=== PATIENT | male | born 1965 | race Caucasian/White ===

== ENCOUNTER 2016-12-26 22:22 | Emergency (ER) | payer OTHER, BC ==
[~2016-12-26] VITALS: Ht 182.9 cm; Wt 94.0 kg
[~2016-12-26 22:22] MED LIST: ATOR-26 PO; VNTHFA/IN INH
[2016-12-26 22:28] VITALS: TEMP 36.6; Ht 182.9 cm; Wt 94.0 kg
[2016-12-26] MEDS ORDERED: ROSU40TA18 PO (22:32)
[2016-12-26] MEDS ORDERED: LPT10 (22:32)
[2016-12-26] MEDS ORDERED: ADD VANTAGE IV ONE (22:45)
[2016-12-26] MEDS ORDERED: CLINDAMYCIN IV ONE (22:45)
[2016-12-26] MEDS ORDERED: DEXTROSE 5% IV ONE (22:45)
[2016-12-26] MEDS ORDERED: COEN1CAP28 PO (22:56)
[2016-12-26] MEDS ORDERED: MIRT15TA3 PO (22:56)
[2016-12-26 23:57] LABS: HEMATOCRIT 38.7 % (42-52); MEAN CELL VOLUME 87.4 fL (80-100); MEAN CORPUSCULAR HEMOGLOBIN 31.2 pg (25-34); MEAN CORPUSCULAR HGB CONC 35.7 g/dl (32-36); MEAN PLATELET VOLUME 9.8 fL (7.4-10.4); PLATELET COUNT 253 K/uL (130-400); RED BLOOD COUNT 4.43 M/uL (4.7-6.1); WHITE BLOOD COUNT 7.22 K/uL (4.8-10.8)
[2016-12-27] MEDS ORDERED: CLINDAMYCIN 150MG HOME PACK PO ONE (00:15)
[2016-12-27 00:16] LABS: BUN/CREATININE RATIO 18.2 (10-20); CALCIUM 9.3 mg/dl (8.5-10.1); CREATININE 0.8 mg/dl (0.60-1.40); POTASSIUM 3.9 mmol/L (3.5-5.1)
[2016-12-27] MEDS ORDERED: IBUPROFEN 600 MG TAB PO STA (00:26)
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
[2016-12-27] MEDS ORDERED: CLIN300C2 PO (00:30)
[2016-12-27 00:40] VITALS: BP 139/93; PULSE 73; O2SAT 99
[2016-12-27 00:43] LABS: COMPLETE YES; EOSINOPHIL % 7.9 %; LYMPHOCYTE % 33.3 %; VARIANT LYM ABS # 1.21 K/uL; VARIANT LYMPHOCYTE % 16.7 %
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
--- NOTE | 2016-12-31 15:29 | Pharmacy Progress Note ---
ED Pharmacist Culture FollowUp Date of Service: Dec 31, 2016. Patient was sent home with a prescription for clindamycin, which should cover the Staph aureus growing from the patient's mouth/drain culture. No sensitivities will be performed on the alpha Strep (not S. pneumo or Enterococcus), Prevotella melaninogenica, or Bacteroides vulgatus also isolated from the same culture. However, clindamycin is likely to be sufficient. Patient was instructed to see provider for worsening of condition - no further intervention required at this time.
== END 2016-12-27 00:41 | disposition home or self-care (01) ==
LOC: C.EDB 22:22 → C.EDC 12-27 00:41
DX: S09.90XA Unspecified injury of head, initial encounter (principal); S13.9XXA Sprain of joints and ligaments of unspecified parts of neck, initial encounter; V40.5XXA Car driver injured in collision with pedestrian or animal in traffic accident, initial encounter; K12.2 Cellulitis and abscess of mouth; Z85.118 Personal history of other malignant neoplasm of bronchus and lung; Z80.43 Family history of malignant neoplasm of testis; J44.9 Chronic obstructive pulmonary disease, unspecified; F17.210 Nicotine dependence, cigarettes, uncomplicated; Z79.899 Other long term (current) drug therapy

== ENCOUNTER 2017-11-09 07:46 | Inpatient (IN) | payer OTHER, BC ==
[2017-10-23 11:36] VITALS: BMI 28.0
--- NOTE | 2017-10-23 12:04 | PAT Medication Instructions ---
Service Date Oct 23, 2017. Current Home Medication List Albuterol Hfa (Ventolin Hfa), 2 PUFF INH Q4 PRN for SOB/Wheezing Hydrocodone/Acetaminophen 7.5MG/325MG (Aragon 7.5MG/325MG), 1 TAB PO BID PRN for N Mirtazapine (Remeron), 7.5 MG PO HS PRN for Sleep Rosuvastatin Calcium (Rosuvastatin Calcium), 40 MG PO HS Medication Instructions For Your Scheduled Surgery - Take the following medications the morning of surgery with a sip of water OTHERWISE NOTHING TO EAT OR DRINK AFTER MIDNIGHT: Albuterol Hfa (Ventolin Hfa), 2 PUFF INH Q4 PRN for SOB/Wheezing (use if needed ; BRING TO HOSPITAL) Hydrocodone/Acetaminophen 7.5MG/325MG (Aragon 7.5MG/325MG), 1 TAB PO BID PRN ( may take if needed up to 4 hours prior to surgery) - Take the following medications as scheduled the night before surgery: Mirtazapine (Remeron), 7.5 MG PO HS PRN for Sleep Rosuvastatin Calcium (Rosuvastatin Calcium), 40 MG PO HS Albuterol Hfa (Ventolin Hfa), 2 PUFF INH Q4 PRN for SOB/Wheezing Hydrocodone/Acetaminophen 7.5MG/325MG (Aragon 7.5MG/325MG), 1 TAB PO BID PRN If you have any questions please call us at [phone] or [phone] or [phone]
[2017-10-23 13:19] LABS: BASO % 1.5 %; BASO ABS # 0.09 K/uL (0-0.2); EOS % 3.9 %; EOS ABS # 0.24 K/uL (0-0.5); HEMATOCRIT 39.7 % (42-52); HEMOGLOBIN 13.7 g/dL (14.0-18.0); IG# 0.01 K/uL (0.00-0.02); LYMPH % 39.3 %; LYMPH ABS # 2.39 K/uL (1.2-3.4); MEAN CELL VOLUME 91.5 fL (80-100); MEAN CORPUSCULAR HEMOGLOBIN 31.6 pg (25-34); MEAN CORPUSCULAR HGB CONC 34.5 g/dl (32-36); MEAN PLATELET VOLUME 10.1 fL (7.4-10.4); MONO % 8.4 %; MONO ABS # 0.51 K/uL (0.11-0.59); NEUT % 46.7 %; NEUT ABS # 2.84 K/uL (1.4-6.5); PLATELET COUNT 259 K/uL (130-400); RED CELL DISTRIBUTION WIDTH CV 12.7 % (11.5-14.5); RED CELL DISTRIBUTION WIDTH SD 42.5 fL (36.4-46.3); WHITE BLOOD COUNT 6.08 K/uL (4.8-10.8)
[2017-10-23 15:27] LABS: CREATININE 0.88 mg/dl (0.60-1.40)
--- NOTE | 2017-11-06 13:31 | HISTORY & PHYSICAL EXAMINATION ---
DATE OF ADMISSION: 11/09/2017 He is scheduled for surgery coming up on 11/09/2017 [facility], posterior lumbar interbody fusion 4-5. CHIEF COMPLAINT: Back pain, radicular symptoms, also lower extremity pain, weakness, inability to stand and ambulate. HISTORY OF PRESENT ILLNESS: Mike is 52. He works at [employer] with a history of lung cancer as well. It has been in remission. A long history of low back pain radiation as well. He has difficult time getting around, cannot walk distances, has tried numerous medications and therapies. PAST MEDICAL HISTORY: Hyperlipidemia, testicular CA, lung CA. PAST SURGICAL HISTORY: Right partial lung resection, right testicle removed, right ankle surgery. ALLERGIES: Negative. SOCIAL HISTORY: He is . No alcohol, tobacco. Little activity. ALLERGIES: None known. CURRENT MEDICATIONS: Include medication for pain and anti-inflammatory reaction. REVIEW OF SYSTEMS: He denies any fevers, sweats, chills, no bowel or bladder issues. Ear, nose and throat negative. Denies any chest palpitations, asthma, wheezing, shortness of breath. No nausea, vomiting, urgency, frequency. Admits to some numbness and tingling, stiffness, joint pain and lumbar spine difficulties. No easy bruisability. No immune deficiency. OBJECTIVE: GENERAL: He is alert, oriented, pleasant. ____. He is 6 foot, 212. VITAL SIGNS: Blood pressure 130/80, pulse of 80, respiratory rate 16, temperature 97.4. HEAD, EYES, EARS, NOSE, AND THROAT: Pupils react to light and accommodation. Ear, nose and throat clear. CARDIAC: Normal S1, S2, no S3. LUNGS: Clear. ABDOMEN: Soft, nontender. MUSCULOSKELETAL: He has pain with percussion lumbar spine. Pain with flexion, extension. 5/5 motor strength throughout with no deficits. Images demonstrate stenosis and instability, L4-L5. ASSESSMENT: Spinal stenosis, instability 4-5 lumbar. ____ posterior lumbar interbody fusion L4-L5 lumbar spine at [facility] on 11/09/2017.
[~2017-11-09] VITALS: Ht 182.9 cm; Wt 93.2 kg
[2017-11-09] VITALS (10 sets, daily range): BP systolic 108–143; BP diastolic 62–91; PULSE 82–114; TEMP 36.2–37.1; O2SAT 91–98; Ht 182.9 cm; Wt 93.2 kg
[~2017-11-09 07:46] MED LIST changes: -ATOR-26 PO; +CEFAZOLIN 2000MG IV PUSH 10 ML IV SCH; +CLINDAMYCIN 600 MG/54 ML D5W IV SCH; +HYDR-3983 PO; +LACTATED RINGER'S 1000ML 1,000 ML IV SCH; +MIRT15TA3 PO; +NSS 1000ML IV SCH; +ROSU40TA28 PO
[2017-11-09] MEDS ORDERED: PHENYLEPHRINE 100MCG/ML 5ML SYR IV PRN (08:00)
[2017-11-09] MEDS ORDERED: EpHEDrine SULFATE INJ 50 MG/ML AMP IV PRN (08:00)
[2017-11-09] MEDS ORDERED: LABETALOL HCL IV 5 MG/ML 20ML IV PRN (08:00)
[2017-11-09] MEDS ORDERED: PROMETHAZINE HCL INJ 12.5 MG in SODIUM CHLORIDE 0.9% 50ML 50 ML IV PRN ×2 (08:00→14:15)
[2017-11-09] MEDS ORDERED: ATROPINE SULFATE 0.1 MG/ML 5ML SYR IV PRN (08:00)
[2017-11-09] MEDS ORDERED: ACETAMINOPHEN 1000 MG/100 ML IV IV SCH (08:00)
[2017-11-09] MEDS ORDERED: FENTANYL CITRATE INJ 50 MCG/1 ML 2 ML VIAL IV PRN (08:00)
[2017-11-09] MEDS ORDERED: HYDROmorphone INJ 1 MG/ML SYR IV PRN (08:00)
[2017-11-09] MEDS ORDERED: ONDANSETRON INJ 2 MG/ML 2 ML VIAL IV PRN ×2 (08:00→14:15)
[2017-11-09] MEDS ORDERED: FENTANYL CITRATE INJ 50 MCG/1 ML 2 ML VIAL ONE ×2 (08:52→14:22)
[2017-11-09] MEDS ORDERED: ONDANSETRON INJ 2 MG/ML 2 ML VIAL ONE (08:52)
[2017-11-09] MEDS ORDERED: LARYING-O-JET KIT (LTA) ONE (08:52)
[2017-11-09] MEDS ORDERED: LIDOCAINE HCL 2% 2 ML VIAL (20MG/ML) ONE (08:52)
[2017-11-09] MEDS ORDERED: PROPOFOL IV EMULSION 10 MG/ML 20 ML VIAL IV ONE (08:52)
[2017-11-09] MEDS ORDERED: MIDAZOLAM HCL 1 MG/ML 2ML VIAL ONE (08:52)
[2017-11-09] MEDS ORDERED: ROCURONIUM BROMIDE 10 MG/ML 5 ML VIAL IV ONE (08:52)
[2017-11-09] MEDS ORDERED: DEXAMETHASONE SOD INJ 4 MG/ML VIAL ONE (08:52)
[2017-11-09] MEDS ORDERED: GLYCOPYRROLATE INJ 0.2 MG/ML VIAL ONE (08:52)
[2017-11-09] MEDS ORDERED: NEOSTIGMINE METHYLSULFATE 5 MG/5 ML SYR ONE (08:52)
[2017-11-09] MEDS ORDERED: THROMBIN FOR SOLN 20000 UNIT KIT ONE ×2 (11:23→11:25)
[2017-11-09] MEDS ORDERED: BACITRACIN 50000 UNIT VIAL ONE (11:23)
[2017-11-09] MEDS ORDERED: GELATIN SPONGE SZ 100 ONE (11:23)
[2017-11-09] MEDS ORDERED: VANCOMYCIN HCL 1000MG/20ML VIAL ONE (11:23)
[2017-11-09] MEDS ORDERED: BUPIVACAINE/EPINEPHRINE 0.5% MPF 1:200,000 30 ML VIAL ONE ×2 (11:25→11:30)
--- NOTE | 2017-11-09 11:37 | History & Physical Bridge Note ---
H&P Re-Evaluation Bridge Note: I have examined the patient, reviewed the History & Physical and in the interval since the performance of the History & Physical I have noted the following changes of clinical significance: No changes noted
[2017-11-09] MEDS ORDERED: HYDROmorphone INJ 2 MG/ML SYR/VIAL ONE (12:29)
[2017-11-09] MEDS ORDERED: EpHEDrine SULFATE 50MG/5ML SYR ONE (12:39)
[2017-11-09] MEDS ORDERED: SODIUM CHLORIDE 0.9% 1000ML 1,000 ML IV SCH (14:10)
--- NOTE | 2017-11-09 14:10 | [facility] Post Operative Brief Note ---
Immediate Operative Summary Operative Date Nov 09, 2017. Pre-Operative Diagnosis Lumbar Stenosis and Instability L4-L5 Post-Operative Diagnosis Lumbar Stenosis and Instability L4-L5 Procedure(s) Performed Posterior Lumbar Interbody Fusion L4-L5 Surgeon Dr. Avila [employer] Sprink[employer] Designer Surgeon(s) DEEPALI Veronica Estimated Blood Loss 100 ml Findings Consistent with Post-Op Diagnosis Specimens none per surgeon Drains None Anesthesia Type General Complication(s) none
--- NOTE | 2017-11-09 14:11 | DIAGNOSTIC IMAGING REPORT ---
SPINE ONE VIEW, ANY LEVEL HISTORY: 52 years-old Male L4-L5 POSTERIOR LUMBAR INTERBODY FUSION status post lumbar spine fusion COMPARISON: Cervical spine CT 12/26/2016 TECHNIQUE: Single lateral spot fluoroscopic image of the lumbar spine was obtained utilizing 8.5 seconds fluoroscopy time. FINDINGS: Status post decompression with discectomy and posterior interbody coby and screw fusion at the L4-L5 level. Alignment is satisfactory. Multilevel endplate spurring. IMPRESSION: Fluoroscopic assistance as above. Please see operative report for further details. The above report was generated using voice recognition software. It may contain grammatical, syntax or spelling errors. Electronically signed by: Enrico Latif M.D. 11/09/2017 2:09 PM Dictated Date/Time: 11/09/2017 1:52 PM
[2017-11-09] MEDS ORDERED: LORAZEPAM INJ 1 MG in SYRINGE 0 ML IV PRN (14:15)
[2017-11-09] MEDS ORDERED: METOCLOPRAMIDE HCL INJ 5 MG/ML 2 ML VIAL IV PRN (14:15)
[2017-11-09] MEDS ORDERED: MAGNESIUM HYDROXIDE SUSP 30 ML UDC PO PRN (14:15)
[2017-11-09] MEDS ORDERED: ACETAMINOPHEN 325 MG TAB PO PRN (14:15)
[2017-11-09] MEDS ORDERED: ALBUTEROL HFA 8 GM INHALER INH PRN (14:15)
[2017-11-09] MEDS ORDERED: NALOXONE HCL 0.4 MG/1 ML VIAL/CARP IV PRN (14:15)
[2017-11-09] MEDS ORDERED: MIRTAZAPINE TAB 15 MG TAB PO PRN (14:15)
[2017-11-09] MEDS ORDERED: HYDROmorphone HCL 0.5MG/ML 50 ML CASSETTE ONE (14:21)
[2017-11-09] MEDS ORDERED: HYDROmorphone INJ 1 MG/ML SYR ONE (14:22)
--- NOTE | 2017-11-09 14:45 | Anesthesiology Progress Note ---
Anesthesia Post Op Note Date & Time Nov 09, 2017 at 14:44 Vital Signs Pain Intensity: 7.0 Vital Signs Past 12 Hours Date Time Temp Pulse Resp B/P (MAP) Pulse Ox O2 Delivery O2 Flow Rate FiO2 11/09/17 14:40 86 15 11/09/17 14:40 88 15 95 11/09/17 14:36 105/76 11/09/17 14:35 80 15 11/09/17 14:35 81 15 99 11/09/17 14:31 120/82 11/09/17 14:30 69 10 100 11/09/17 14:30 70 10 11/09/17 14:26 99/93 11/09/17 14:25 70 19 100 11/09/17 14:25 70 19 11/09/17 14:21 121/70 11/09/17 14:20 71 14 11/09/17 14:20 72 14 99 11/09/17 14:16 122/68 11/09/17 14:15 72 15 98 11/09/17 14:15 75 15 11/09/17 14:10 36.5 95 18 122/68 100 Oxymask 7 11/09/17 08:37 36.6 82 20 114/87 96 Room Air Notes Mental Status: alert / awake / arousable, participated in evaluation Pt Amnestic to Procedure: Yes Nausea / Vomiting: adequately controlled Pain: adequately controlled Airway Patency, RR, SpO2: stable & adequate BP & HR: stable & adequate Hydration State: stable & adequate Anesthetic Complications: no major complications apparent
[2017-11-09] MEDS: HYDROmorphone HCL 0.5MG/ML 50 ML CASSETTE IV PRN ×2 (15:12→22:59)
[2017-11-09 15:51] LABS: HEMATOCRIT 35.2 % (42-52); HEMOGLOBIN 12.1 g/dL (14.0-18.0)
[2017-11-09] MEDS: SODIUM CHLORIDE 0.9% 1000ML 1,000 ML IV SCH (16:41)
[2017-11-09] MEDS: KETOROLAC TROMETHAMINE 30 MG/ML VIAL IV SCH ×2 (17:19→23:36)
[2017-11-09] MEDS: LORAZEPAM 1 MG TAB PO PRN (17:20)
--- NOTE | 2017-11-09 17:32 | OPERATIVE REPORT ---
DATE OF OPERATION: 11/09/2017 PREOPERATIVE DIAGNOSIS: Instability and stenosis, L4-L5 lumbar spine. POSTOPERATIVE DIAGNOSIS: Same. PROCEDURE: Posterior lumbar interbody fusion, L4-L5 and decompression laminectomy. SURGEON: Dr. Avila. CAD INTERN: Jose David Bedolla PA-C. COMPLICATIONS: Zero. BLOOD LOSS: 100 mL. COUNTS: Sponge, needle count correct at the close of the procedure. COMPLICATIONS: No apparent complications. IMPLANTS USED: tydy. DESCRIPTION OF PROCEDURE: The patient was taken to the operating room, a general intubated and anesthetic provided to the patient. Swartz catheter placed, antibiotics provided. He was placed prone, shaved, scrubbed, prepped and draped. A formal timeout obtained. We made a skin incision, fascial incision, came right down to L4-L5 interspace, marked this with imaging. We have decompressed the neural elements at L4 and L5, foraminotomies, partial facetectomies. We then were safely able to instrument the patient and I was able to get the screw at L4 and L5 bilaterally by the tydy. We then were able to retract the dura over in a medial direction from both sides, I was able to get a very nice, a cage placed on interbody implant. It measured 26 mm in length, it was 12 mm in height and was 10 mm in width and this was packed with autograft. Autograft also preceded the implant in the interbody area. We locked down the pedicle screws under compression irrigated, thoroughly, placed some Gelfoam over the dura structures, closed fascia to fascia over Hemovac drain and over vancomycin powder with #1 Vicryl suture, 2-0 in the subcuticular layer, 3-0 nylon on the skin, sterile dressing applied. The patient returned to recovery room satisfactory and stable. No apparent complications. I attest to the content of the Intraoperative Record and any orders documented therein. Any exception s are noted below.
[2017-11-09] MEDS: DEXAMETHASONE INJ 10 MG in SYRINGE 0 ML IV SCH (17:48)
[2017-11-09] MEDS: CLINDAMYCIN IV 600 MG in DEXTROSE 5% 50ML 50 ML IV SCH (20:24)
[2017-11-09] MEDS: ROSUVASTATIN CALCIUM 20 MG TAB PO SCH (20:34)
[2017-11-10] MEDS: LORAZEPAM 1 MG TAB PO PRN (01:07)
[2017-11-10] MEDS: DEXAMETHASONE INJ 10 MG in SYRINGE 0 ML IV SCH ×3 (01:45→17:41)
[2017-11-10 03:15] VITALS: BP 123/70; PULSE 107; TEMP 36.7; O2SAT 95
[2017-11-10] MEDS: CLINDAMYCIN IV 600 MG in DEXTROSE 5% 50ML 50 ML IV SCH (03:32)
[2017-11-10] MEDS: SODIUM CHLORIDE 0.9% 1000ML 1,000 ML IV SCH (03:32)
[2017-11-10] MEDS: ALBUTEROL HFA 8 GM INHALER INH PRN ×2 (03:54→14:47)
[2017-11-10] MEDS: KETOROLAC TROMETHAMINE 30 MG/ML VIAL IV SCH ×3 (05:37→17:45)
[2017-11-10] MEDS ORDERED: DC PCA SCH ×2 (06:00→08:00)
[2017-11-10] MEDS ORDERED: BISACODYL 10 MG SUPP PR PRN (06:00)
[2017-11-10] MEDS ORDERED: BISACODYL 5 MG TABEC PO PRN (06:00)
[2017-11-10 06:52] VITALS: BP 102/61; PULSE 95; TEMP 36.7; O2SAT 92
--- NOTE | 2017-11-10 07:38 | Anesthesiology Progress Note ---
Anesthesia Post Op Note Date & Time Nov 10, 2017 at 07:37 Vital Signs Pain Intensity: 7.0 Vital Signs Past 12 Hours Date Time Temp Pulse Resp B/P (MAP) Pulse Ox O2 Delivery O2 Flow Rate FiO2 11/10/17 06:52 36.7 95 18 102/61 (75) 92 Room Air 11/10/17 03:15 36.7 107 20 123/70 (87) 95 Room Air 11/09/17 23:52 97 Room Air 11/09/17 22:55 36.6 110 16 108/75 (86) 91 Room Air 11/09/17 20:47 36.2 11/09/17 20:32 37.1 112 17 118/62 (80) 93 Room Air Notes Mental Status: alert / awake / arousable, participated in evaluation Pt Amnestic to Procedure: Yes Nausea / Vomiting: adequately controlled Pain: improving with treatment, see Notes Airway Patency, RR, SpO2: stable & adequate BP & HR: stable & adequate Hydration State: stable & adequate Anesthetic Complications: no major complications apparent Dr. Avila to order different pain medication upon am visit.
[2017-11-10] MEDS ORDERED: OXYCODONE/ACETAMINOPHEN 5-325 TAB PO PRN (08:00)
[2017-11-10] MEDS ORDERED: HYDROmorphone INJ 1 MG/ML SYR IV PRN (08:00)
[2017-11-10] MEDS ORDERED: NURSING VERBAL MED ORDER ONE ×2 (08:45→18:45)
--- NOTE | 2017-11-10 08:47 | Discharge Instructions ---
Discharge Instructions Date of Service Nov 10, 2017. Admission Reason for Admission: Lumbar Spinal Stenosis Discharge Discharge Diagnosis / Problem: stenosis and instability Discharge Goals Goal(s): Improve function Activity Recommendations Activity Limitations: as noted below Lifting Limitations: until after follow-up appointment Exercise/Sports Limitations: until after follow-up appointment May Resume Sexual Activity: after follow-up appointment . Instructions / Follow-Up Instructions / Follow-Up MEDICATIONS: Please take your prescriptions as instructed at your pre-op appointment. SPECIAL CARE: The following information is intended to answer some of the common questions and concerns regarding your surgery. Each patient is an individual and receives individual counselling throughout the course of treatment, from diagnosis to surgery all the way through recovery. What follows is not an exhaustive list, but should be a useful guide to some of the common questions and concerns patients have regarding their surgeries. These are not provided to keep you from calling us; rather, they give you something accurate and concrete to reference as you recover from your procedure. If you need us, we are available to you. As always, if you are not sure about something, call us at [phone]. MEDICAL EMERGENCIES: For these conditions, call 911 or go to your local hospital-based Emergency Department - not [facility] or equivalent. * Paralysis * Severe chest pain or difficulty breathing * Swelling or redness of either leg Spine procedures can be rather complex and though complications are rare, they do occur. In such cases, effective advice regarding emergency situations cannot always be addressed over the telephone. You may be referred to the emergency department for more effective management of your problem. Activity Limitations: It is important to give your body time to heal, so please limit your activities : * In general, don't do anything that moves your spine too much. You should avoid contact sports, twisting or heavy lifting while you recover. * 5-10 pounds is all you should attempt to lift. * You should not plan on driving for approximately 3 weeks and you should avoid traveling more than 30-45 minutes at a time. Longer trips should be broken down with walking breaks spaced appropriately. * Physical therapy is not usually required. * Walking and good posture practices will help you recover and regain your function. * Avoid straining or sudden changes in position. * In general, the goal is to take it easy and recover. Don't cause any new problems. Just relax. Showers: * Do not take a bath, use a Jacuzzi or hot tub or otherwise submerge your incision. * It is usually safe to take a shower 4-5 days after your surgery. * Your incision does not require any special creams or ointments. * Simply clean it with soap and water, dry and re-dress with a clean bandage afterwards. Incision: * Keep incision clean, dry and protected until your first follow-up appointment. * Some amount of drainage and redness is normal. Any drainage should be fairly clear and not have a foul odor. * If you feel anything is wrong or you have excessive drainage, please call us. * Your stitches and reji will be removed 10-14 days after your surgery. At the time of your first post-op visit. * Neck surgeries are typically closed with a suture underneath the skin. The steri-strips over the incision should be maintained until we see you in the office. Bracing: * You may be provided with a back or neck brace to encourage good posture and prevent injury. It will remind you not to do too much as you heal and will alert others to the fact that you have had a surgery. * Back braces may be removed for showers and when you are resting at home. They must be worn when you are walking around for any period of time or for travel. * For neck surgery, you will likely be provided with two cervical collars. The soft collar ([place] or foam rubber) is worn most commonly throughout the day and while sleeping. The plastic collar (provided at the hospital) is for showering/bathing. * Except while eating, collars should remain in place. More specifically, bracing is provided for a purpose and should be worn. * Please obtain your brace or collars prior to your operation and bring them to the hospital with you on the day of surgery. * You should also bring your collars to your post-op appointment with Dr. Avila. You should always take good care of your body and practice healthy habits, especially following surgery. You should: * Follow your doctor's treatment plan * Sit and stand properly with good posture (ears over shoulders, shoulders over hips) Don't slouch * Learn to lift correctly * Exercise regularly (low-impact aerobic exercise is especially good, but check with your doctor first) * Generally, be up and walking for 5-10 minutes at a time at least 3-4 times per day from the day you get home * Increasing walking to tolerance until you can walk for 20-30 minutes at a time * Attain and maintain a healthy body weight * Eat healthy foods ( a well-balanced, low-fat diet rich in fruits and vegetables) and get enough calcium * Avoid excessive use of alcohol When to call our office - If you notice any of the following: * Increased pain not relieve by pain medicine * Fevers greater then 100 degrees F, chills or flu symptoms * Increased redness around incision * Drainage from the incision that is not clear * Any foul smelling drainage * Swelling or fluid collection beneath the skin Miscellaneous: * In the hospital, you may be given a walker or cane for support while walking. These are temporary needs and are intended to prevent injuries due to falls. You may discontinue them when you feel strong and steady enough on your feet. * Sleep in a comfortable position. We find that many patients find a lounge chair or recliner with several pillows to be beneficial in the early post-operative period. * The support stockings should be used for 7-10 days and may be discontinued when you are back to walking more and conducting usual household activities. No problem is insignificant. We are here to help you and get you well. Contact us at [phone]. Definitions: Foraminotomy: If part of the disc or a bone spur (osteophyte) is pressing on a nerve as it leaves the vertebra (through an exit called the foramen), a foraminotomy may be done. Otomy means "to make an opening." A foraminotomy is making the opening of the foramen larger, so the nerve can exit without being compressed. Laminotomy: Similar to the foraminotomy, a laminotomy makes a larger opening, this time in your bony plate protecting your spinal canal and spinal cord (the lamina). The lamina may be pressing on your nerve, so the surgeon may make more room for the nerves using a laminotomy. Laminectomy: Sometimes, a laminotomy is not sufficient. The surgeon may need to remove all or part of the lamina. This procedure is called a laminectomy. This can often be done at many levels without any harmful effects. Current Hospital Diet Patient's current hospital diet: Regular Diet Discharge Diet Recommended Diet: Regular Diet Procedures Procedures Performed: Posterior Lumbar Interbody Fusion L4-L5 Pending Studies Studies pending at discharge: no Medical Emergencies . Who to Call and When: Medical Emergencies: If at any time you feel your situation is an emergency, please call 911 immediately. . Non-Emergent Contact Non-Emergency issues call your: Primary Care Provider . "Provider Documentation" section prepared by Marshall Avila. . VTE Core Measure Inpt VTE Proph given/why not?: Treatment not indicated
[2017-11-10] MEDS: POLYETHYLENE (MIRALAX) 17 GM PACK PO SCH (08:57)
--- NOTE | 2017-11-10 08:58 | ORTHOPEDICS PROGRESS NOTE ---
DATE: 11/10/2017 SUBJECTIVE: Alert, oriented. Minimal complaints of pain. Still at bed rest. No confusion, shortness of breath. OBJECTIVE: VITAL SIGNS: Stable. Bowel sounds decreased. No neurological deficits. ASSESSMENT: Status post PLIF procedure lumbar spine L4-L5, doing appropriately in the short run now approximately 18 hours post-surgery. DISPOSITION: Includes instructions, precautions. Up and ambulatory today, very small distances. Tentative discharge home tomorrow.
[2017-11-10] MEDS: OXYCODONE/ACETAMINOPHEN 5-325 TAB PO PRN ×2 (09:02→17:37)
[2017-11-10 10:39] VITALS: BP 135/65; PULSE 98; TEMP 36.5; O2SAT 92
[2017-11-10] MEDS: HYDROmorphone INJ 1 MG/ML SYR IV PRN ×3 (11:13→23:48)
[2017-11-10 15:28] VITALS: BP 103/65; PULSE 89; TEMP 36.9; O2SAT 93
[2017-11-10] MEDS: CALCIUM CARBONATE 500 MG CHEWABLE PO PRN ×2 (20:01→23:17)
[2017-11-10] MEDS: ROSUVASTATIN CALCIUM 20 MG TAB PO SCH (20:02)
[2017-11-10] MEDS ORDERED: HYDROmorphone INJ 1 MG/ML SYR IV SCH (20:23)
[2017-11-10 22:49] VITALS: BP 121/63; PULSE 87; TEMP 36.5; O2SAT 96
[2017-11-11] MEDS: DEXAMETHASONE INJ 10 MG in SYRINGE 0 ML IV SCH (01:25)
[2017-11-11] MEDS: CALCIUM CARBONATE 500 MG CHEWABLE PO PRN ×3 (01:25→11:40)
[2017-11-11] MEDS: OXYCODONE/ACETAMINOPHEN 5-325 TAB PO PRN ×2 (01:26→09:59)
[2017-11-11] MEDS: ALBUTEROL HFA 8 GM INHALER INH PRN (01:32)
[2017-11-11] MEDS ORDERED: HYDR-4383 PO (08:11)
[2017-11-11] MEDS: POLYETHYLENE (MIRALAX) 17 GM PACK PO SCH (08:16)
[2017-11-11] MEDS: HYDROmorphone INJ 1 MG/ML SYR IV PRN ×2 (08:17→12:44)
[2017-11-11 09:30] VITALS: BP 121/63; PULSE 87; TEMP 36.5; O2SAT 96
[2017-11-11 10:40] VITALS: BP 113/67; PULSE 85; TEMP 36.6; O2SAT 95
== END 2017-11-11 13:22 | disposition home or self-care (01) | DRG 455 ==
LOC: C.ACU 07:46 → C.3E 11:30 → ENRESERV 14:55
PROVIDERS: ADMIT Orthopaedic Surgery Orthopaedic Surgery of the Spine; ATTEND Orthopaedic Surgery Orthopaedic Surgery of the Spine
PROC: 0SG00AJ Fusion of Lumbar Vertebral Joint with Interbody Fusion Device, Posterior Approach, Anterior Column, Open Approach (ICD-10-PCS; principal; 2017-11-09 10:30)
PROC: 0SG00J1 Fusion of Lumbar Vertebral Joint with Synthetic Substitute, Posterior Approach, Posterior Column, Open Approach (ICD-10-PCS; principal; 2017-11-09 10:30)
DX: M48.061 Spinal stenosis, lumbar region without neurogenic claudication (principal); E78.5 Hyperlipidemia, unspecified; Z85.47 Personal history of malignant neoplasm of testis; Z85.118 Personal history of other malignant neoplasm of bronchus and lung

== ENCOUNTER → 2017-12-21 | Outpatient (CLI) | payer BC ==
[~2017-12-21] MED LIST changes: -CEFAZOLIN 2000MG IV PUSH 10 ML IV SCH; -CLINDAMYCIN 600 MG/54 ML D5W IV SCH; +HYDR-4383 PO; -LACTATED RINGER'S 1000ML 1,000 ML IV SCH; -NSS 1000ML IV SCH
[2017-12-21 15:38] LABS: BASO % 0.8 %; BASO ABS # 0.04 K/uL (0-0.2); EOS % 2.6 %; EOS ABS # 0.13 K/uL (0-0.5); HEMOGLOBIN 11.4 g/dL (14.0-18.0); LYMPH % 40.3 %; LYMPH ABS # 2.03 K/uL (1.2-3.4); MEAN CELL VOLUME 91.4 fL (80-100); MEAN CORPUSCULAR HEMOGLOBIN 30.6 pg (25-34); MEAN CORPUSCULAR HGB CONC 33.5 g/dl (32-36); MEAN PLATELET VOLUME 9.5 fL (7.4-10.4); MONO % 8.9 %; MONO ABS # 0.45 K/uL (0.11-0.59); NEUT % 47.4 %; NEUT ABS # 2.39 K/uL (1.4-6.5); PLATELET COUNT 286 K/uL (130-400); RED CELL DISTRIBUTION WIDTH CV 12.7 % (11.5-14.5); RED CELL DISTRIBUTION WIDTH SD 42.5 fL (36.4-46.3); WHITE BLOOD COUNT 5.04 K/uL (4.8-10.8)
== END | disposition home or self-care (01) ==
LOC: C.LAB 14:11
PROVIDERS: ATTEND Orthopaedic Surgery Orthopaedic Surgery of the Spine
DX: M96.842 Postprocedural seroma of a musculoskeletal structure following a musculoskeletal system procedure (principal); M48.061 Spinal stenosis, lumbar region without neurogenic claudication; M51.36 Other intervertebral disc degeneration, lumbar region

== ENCOUNTER → 2017-12-25 | Day surgery (SDC) | payer BC ==
[~2017-12-25] VITALS: Ht 182.9 cm; Wt 93.0 kg
[2017-12-25] VITALS (8 sets, daily range): BP systolic 97–115; BP diastolic 64–81; PULSE 67–85; TEMP 36.5–36.7; O2SAT 95–97; Ht 182.9 cm; Wt 93.0 kg
[~2017-12-25] MED LIST changes: +ACETAMINOPHEN 500 MG TAB PO PRN
--- NOTE | 2017-12-25 10:32 | Discharge Instructions ---
Discharge Instructions Procedure Procedure Date: Dec 25, 2017. Reason for visit: Lumbar Stenosis, Incision Issues, Pain. Discharge Discharge Date: Dec 25, 2017. Discharge Diagnosis: same Instructions Activity Recommendations: No limitations Return to School/Work: no limitations Recommended Home Diet: No Limitations, Resume Previous Diet Provider Instructions: ACTIVITY RECOMMENDATIONS: * Rest today. * Resume regular activity in one day. MEDICATIONS: * May take Tylenol or Ibuprofen as needed for pain. DIET: * Resume previous diet. SPECIAL CARE INSTRUCTIONS: Call your doctor if: * Temperature above 101 degrees F. * Pain not relieved by pain medicine ordered. * Increased drainage or redness from incision. * Notify your doctor with any questions or concerns. Call your doctor or go to the nearest Emergency Department if you experience: * Increased chest pain or shortness of breath. FOLLOW UP VISIT: Follow-up with Referring Physician as scheduled. Allergies Coded Allergies: Ciprofloxacin (Verified Allergy, Unknown, hives, 12/25/17) Penicillins (Verified Allergy, Unknown, UNKNOWN, 12/25/17) Quinolones (Verified Allergy, Unknown, CIPRO HIVES, 12/25/17) Tramadol (Verified Allergy, Unknown, HIVES, 12/25/17) [place] Recommendations: Call your doctor if: * Temperature above 101 degrees * Pain not relieved by pain medicine ordered * There is increased drainage or redness from any incision * You have any unanswered questions or concerns. Your Doctors Instructions noted above were prepared by provider Joe Chen. Patient Signature Section: Patient Instructions Signature Page Mike Jose Antonio Patient (or Guardian) Signature/Date: I have read and understand the instructions given to me by my caregivers. Caregiver/RN/Doctor Signature/Date: The above-named patient and/or guardian has received patient instructions on this date. + Original Patient Signature Page (only) stays with chart. Please make copy for patient.
--- NOTE | 2017-12-25 10:57 | DIAGNOSTIC IMAGING REPORT ---
LUMBAR SPINE CT MYELOGRAM HISTORY: Low back pain. Lumbar stenosis. POST MYELOGRAM TECHNIQUE: Multiaxial CT images of the lumbar spine were performed and reformatted in the coronal and sagittal plane following the intrathecal injection of contrast. COMPARISON: Lumbar spine 12/18/2017. Lumbar spine MRI 10/04/2012. FINDINGS: For the purpose of the report the L5-S1 disc space will be located on axial image 290 of 332. Alignment and curvature are intact. No fracture or subluxation. Posterior decompression and fusion at L4-L5 with pedicle screws and rods. The hardware appears intact. No abnormal periprosthetic lucency. There is a disc spacer at L4-L5 which is in good position. However, there is no significant fusion at the L4-L5 disc space. L5 demonstrates partial sacralization of the transverse processes with pseudoarthrosis with the adjacent sacrum. Visualized paraspinal soft tissues are unremarkable. Subcutaneous soft tissue thickening at the lumbar region likely due to the recent postoperative change. L1-L2: Small broad-based posterior disc bulge resulting in mild central canal narrowing. No significant neural foraminal narrowing. L2-L3: Small broad-based posterior disc bulge resulting in mild central canal narrowing. No significant neural foraminal narrowing. L3-L4: Broad-based posterior disc bulge with ligamentum and facet hypertrophy resulting in moderate central canal and [id number]-apunbmyl bilateral neural foraminal narrowing. L4-L5: No significant central canal narrowing due to the posterior decompression. There is mild right and moderate left neural foraminal narrowing. L5-S1: No significant central canal or left-sided neural foraminal narrowing. Mild right-sided neural foraminal narrowing. IMPRESSION: 1. Posterior decompression and fusion at L4-L5 with pedicle screws and rods. The hardware appears intact. No significant central canal narrowing at this level. 2. Broad-based posterior disc bulges at L1-L2, L2-L3, and L3-L4 resulting in central canal narrowing as described above. This most pronounced at the L3-L4 level. Electronically signed by: Joe Chen M.D. 12/25/2017 10:55 AM Dictated Date/Time: 12/25/2017 10:44 AM
--- NOTE | 2017-12-25 10:59 | DIAGNOSTIC IMAGING REPORT ---
FLUOROSCOPICALLY GUIDED LUMBAR MYELOGRAM CLINICAL HISTORY: back pain FLUOROSCOPY TIME: 1 minute. A single fluoroscopic spot image submitted. PROCEDURE: The procedure, risks and benefits were discussed with the patient including the risk of spinal headache, bleeding and infection. The patient agreed to the procedure and informed written consent was obtained. The procedure was performed by Dr. Chen following a timeout. Skin overlying the space was prepped and draped in the usual sterile fashion and local anesthesia was achieved with 1% lidocaine. The left L2-L3 interlaminar space was targeted. However, the initial attempt failed. The initial attempt at the L3-L4 level also failed. Therefore, a final attempt at the L5-S1 level was performed and was successful. Under intermittent fluoroscopic guidance, a 20-gauge x 3 1/2 in. Sprotte needle was inserted into the thecal sac. A total of 12 cc of [id number]-[id number] was injected into the thecal sac under fluoroscopic guidance. The patient tolerated the procedure well. There were no immediate complications. IMPRESSION: Successful fluoroscopic guided lumbar myelogram. No immediate complications. The patient was sent to the CT suite in stable condition. Electronically signed by: Joe Chen M.D. 12/25/2017 10:58 AM Dictated Date/Time: 12/25/2017 10:55 AM
== END | disposition home or self-care (01) ==
LOC: C.ACU 08:29
PROVIDERS: ATTEND Orthopaedic Surgery Orthopaedic Surgery of the Spine
DX: M96.842 Postprocedural seroma of a musculoskeletal structure following a musculoskeletal system procedure (principal); M48.061 Spinal stenosis, lumbar region without neurogenic claudication; M51.36 Other intervertebral disc degeneration, lumbar region